=== PATIENT | female | born 1990 | race Caucasian/White ===

== ENCOUNTER 2017-06-09 13:45 | Emergency (ER) | payer OTHER ==
[~2017-06-09] VITALS: Ht 157.5 cm; Wt 94.8 kg
[2017-06-09] MEDS ORDERED: PRENATABS RX T1 EACH (14:02)
[2017-06-09] MEDS ORDERED: FOLIC ACID0.4 MG (14:02)
== END 2017-06-10 10:42 | disposition home or self-care (01) ==
LOC: ER 13:45
DX: O26.891 Other specified pregnancy related conditions, first trimester (principal); R10.813 Right lower quadrant abdominal tenderness; Z34.01 Encounter for supervision of normal first pregnancy, first trimester